=== PATIENT | female | born 1995 | race American Indian/Alaskan Native ===

== ENCOUNTER 2018-07-14 03:31 | Inpatient (IN) | payer MEDICAID ==
[2018-07-14] MEDS ORDERED: LACTATED RINGERS 1,000 ML ONE (03:45)
[2018-07-14] MEDS ORDERED: BRETHINE SUB-Q PRN (04:16)
[2018-07-14] MEDS ORDERED: XYLOCAINE 2% INFILTRATI ONE (04:16)
[2018-07-14] MEDS ORDERED: BRETHINE IVP PRN (04:16)
[2018-07-14] MEDS ORDERED: ZOFRAN IV PRN (04:16)
[2018-07-14] MEDS ORDERED: MINERAL OIL PO PRN (04:16)
[2018-07-14] MEDS: LACTATED RINGERS 1,000 ML IV SCH ×3 (04:35→22:50)
[2018-07-14] MEDS: STADOL IV PRN ×2 (04:36→07:10)
[2018-07-14 04:48] LABS: Hematocrit 32.5 % (30.3-42.9); Hemoglobin 10.7 gm/dl (10.1-14.3); Mean Corpuscular HGB Conc 33 % (30-34); Mean Corpuscular Volume 80 fl (79-97); Platelet Count 258 K/mm3 (140-440); Red Blood Count 4.08 M/mm3 (3.65-5.03); Red Cell Distribution Width 14.8 % (13.2-15.2)
[2018-07-14] MEDS ORDERED: PITOCin/NS 20 UNIT/1000ML DRIP 20 UNITS/1,000 ML BAG IV SCH ×3 (05:00→12:00)
--- NOTE | 2018-07-14 08:20 | History and Physical Report ---
History of Present Illness Date of examination: 07/14/18 Date of admission: 07/14/2018 Chief complaint: leakage of fluid History of present illness: 23y/o @ 39+1 weeks presents with gross leakage of fluid and 1-2cm dilated. The patient is a transfer of care @ 34 weeks ega from [place]. She has had lapse in care during her . She has a history of prior delivery. Past History Past Medical History: other (bipolar disorder) Past Surgical History: section Social history: single - Obstetrical History Expected Date of Delivery: 07/20/18 Actual Gestation: 39 Week(s) 1 Day(s) : 2 Para: 1 Hx # Term Pregnancies: 1 Number of Pregnancies: 0 Spontaneous Abortions: 0 Induced : 0 Number of Living Children: 1 Medications and Allergies Allergies Allergy/AdvReac Type Severity Reaction Status Date / Time No Known Allergies Allergy Verified 07/14/18 04:15 Active Meds: Active Medications Butorphanol Tartrate (Stadol) 2 mg IV Q2H PRN PRN Reason: Pain , Severe (7-10) Last Admin: 07/14/18 07:10 Dose: 2 mg Documented by: Ephedrine Sulfate (Ephedrine Sulfate) 10 mg IV Q2M PRN PRN Reason: Hypotension Lactated Ringer's (Lactated Ringers) 1,000 mls @ 125 mls/hr IV DIRECT GIDEON Last Admin: 07/14/18 07:09 Dose: 125 mls/hr Documented by: Oxytocin/Sodium Chloride (Pitocin/Ns 20 Unit/1000ml Drip) 20 units in 1,000 mls @ 125 mls/hr IV DIRECT GIDEON Mineral Oil (Mineral Oil) 30 ml PO QHS PRN PRN Reason: Constipation Ondansetron HCl (Zofran) 4 mg IV Q8H PRN PRN Reason: Nausea And Vomiting Last Admin: 07/14/18 04:35 Dose: 4 mg Documented by: Terbutaline Sulfate (Brethine) 0.25 mg SUB-Q ONCE PRN PRN Reason: Hyperstimulation/Hypertonicity Terbutaline Sulfate (Brethine) 0.25 mg IVP ONCE PRN PRN Reason: Hyperstimulation/Hypertonicity Review of Systems Genitourinary: leakage of fluid, contractions - Vital Signs Vital signs: Vital Signs Temp Resp 97.6 F 20 07/14/18 05:00 07/14/18 05:00 Temp Pulse Resp BP Pulse Ox 97.6 F 61 18 131/65 07/14/18 05:00 07/14/18 07:27 07/14/18 07:10 07/14/18 07:27 - Physical Exam Breasts: Positive: deferred Cardiovascular: Regular rate Lungs: Positive: Clear to auscultation Results Result Diagrams: 07/14/18 04:20 Abnormal lab results 07/14/18 Range/Units 04:20 MCH 26 L (28-32) pg All other labs normal. Assessment and Plan - Patient Problems (1) Previous delivery affecting Current Visit: Yes Status: Acute Plan to address problem: will proceed with a repeat delivery (2) Spontaneous rupture of amniotic membranes Current Visit: Yes Status: Acute
[2018-07-14] MEDS ORDERED: ANCEF/STERILE WATER 2 GM/20 ML 2 GM/20 ML SYRINGE IV NR (10:00)
[2018-07-14] MEDS ORDERED: REGLAN IV ONE (10:00)
[2018-07-14] MEDS ORDERED: BICITRA PO ONE (10:00)
[2018-07-14] MEDS ORDERED: PEPCID IV ONE (10:00)
[2018-07-14] MEDS ORDERED: LACTATED RINGERS 1,000 ML IV SCH (10:00)
[2018-07-14] MEDS ORDERED: LANSINOH TP PRN (11:42)
[2018-07-14] MEDS ORDERED: TYLENOL PO PRN (11:42)
[2018-07-14] MEDS ORDERED: MORPHINE IV PRN (11:42)
[2018-07-14] MEDS ORDERED: TUCKS PAD TP PRN (11:42)
[2018-07-14] MEDS ORDERED: NARCAN 0.4 MG/1 ML IV PRN ×2 (11:42→14:02)
--- NOTE | 2018-07-14 11:46 | Procedure Note ---
OB Delivery Note - Delivery Date of Delivery: 07/14/18 Surgeon: GAGE ROLAND Estimated blood loss: 500cc - Section Preop diagnosis: repeat Postop diagnosis: same section procedure: section, repeat low transverse Disposition: PACU Complications: none - A at 1 minute: 8 at 5 minutes: 9 (weight 7lbsn 4oz) Infant Gender: Female
--- NOTE | 2018-07-14 11:47 | Operative Report ---
Operative Report Operative Report: Date of surgery: 07/14/2018 Preoperative diagnosis: at 39+1 weeks; previous delivery; spontaneous rupture membranes Postoperative diagnosis: Same as above Procedure: Repeat low-transverse delivery; lysis of adhesions Surgeon: Maria Antonia Ireland M.D. Anesthesia: Regional Estimated blood loss: 500 mL IV fluids: 800 mL Urine output: 250 mL Findings: Liveborn female infant with Apgars of 8 and 9 weight 7 lbs. 4 oz. born at 1315 Indications: 23-year-old at 39+1 weeks who presents with gross rupture of membranes and history of a prior delivery. Procedure: The patient was taken to the operating room and given regional anesthesia without complication. She was prepped and draped in a normal sterile fashion. A Pfannenstiel skin incision was made down to layer the fascia which was nicked in the midline extended laterally with the Bovie cautery. The superior aspect of the rectus fascia was grasped with [place] clamps x2 and the rectus muscles off sharply. This was done in inferior fashion as well. The rectus muscle midline and peritoneum entered bluntly. An Jose retractor was then inserted. A bladder blade was placed. The vesicouterine peritoneum was then entered sharply with Metzenbaum scissors. A bladder flap was created digitally. A low transverse uterine incision was then made and extended digitally. There was clear fluid upon entry into the uterine cavity. The head was delivered through the incision with fundal pressure. The cord was clamped and cut x2 and infant was passed off to pediatrics. The placenta was then manually extracted. The uterus was then exteriorized and cleared of clots and debris. The uterine incision was then closed in a running locked fashion with 0 Vicryl additional imbricating stitch was applied for 2 layer closure. An additional figure 8 stitch was placed in the left lateral corner of the incision for hemostasis. The posterior cul-de-sac was then copiously irrigated. The uterus was replaced back into the abdomen and pelvis were the gutters were then irrigated. The Jose retractor was then removed. The peritoneum was then reapproximated with 3-0 Vicryl incorporating the rectus muscle. The fascia was then closed with 0 Vicryl in a running fashion. The skin was then reapproximated with 3-0 Monocryl on a Master needle subcuticular fashion. Steri-Strips to place across the incision and a Crede procedures performed at the end of the surgery. A pressure dressing was applied to the incision. The surgery productive of a liveborn female infant with Apgars of 8 and 9 weight 7 lbs. 4 oz. The patient was taken to the recovery room in stable condition. All sponge laps and needle counts correct x2.
[2018-07-14] MEDS ORDERED: SODIUM CHLORIDE FLUSH SYRINGE 10 ML IV NR ×2 (12:00→15:00)
[2018-07-14] MEDS ORDERED: SUBLIMAZE ONE (12:41)
[2018-07-14] MEDS ORDERED: ANCEF/STERILE WATER 2 GM/20 ML IV ONE (13:06)
[2018-07-14] MEDS ORDERED: WATER FOR IRRIG STERILE IR ONE (13:07)
[2018-07-14] MEDS ORDERED: NACL 0.9% IR ONE (13:07)
[2018-07-14] MEDS ORDERED: ZOFRAN ONE (13:30)
--- NOTE | 2018-07-14 14:07 | Post Anesthesia Evaluation ---
- Post Anesthesia Evaluation Patient Participated: Yes Airway Patent: Yes Stable Respiratory Function: Yes Nausea/Vomiting: No Temp > 96.8F: Yes Pain Manageable: Yes Adequeate Hydration: Yes Anesthesia Complications: No Block Receding Appropriately: Yes (T10 level) Patient on Ventilator: No Other Comments: Pt in OB PACU to be monitored by staff nurse. No complaints of pain or nausea. Explained to patient typical post operative recession of spinal level. Pt verbalizes understanding.
[2018-07-14] MEDS: DILAUDID IV PRN ×3 (14:42→15:17)
[2018-07-14] MEDS: TORADOL IV PRN ×2 (14:48→22:54)
[2018-07-14] MEDS: PERCOCET 5/325 PO PRN (17:00)
[2018-07-14 23:29] LABS: Hematocrit 29.3 % (30.3-42.9); Hemoglobin 9.5 gm/dl (10.1-14.3)
[2018-07-15] MEDS: PERCOCET 5/325 PO PRN ×4 (00:17→22:08)
[2018-07-15] MEDS: TORADOL IV PRN (05:59)
[2018-07-15] MEDS: LACTATED RINGERS 1,000 ML IV SCH (06:31)
--- NOTE | 2018-07-15 08:55 | Progress Note ---
Assessment and Plan A/P POD 1 s/p repeat csec routine Post op orders h/h 10-9 iron supplemented continue present mgt Subjective - Subjective Date of service: 07/15/18 Principal diagnosis: s/p repeat csec Patient reports: appetite normal, voiding normally, pain well controlled, flatus, ambulating normally : doing well Objective - Vital Signs Latest vital signs: Vital Signs Temp Pulse Resp BP BP Pulse Ox 07/15/18 01:14 98.5 F 74 20 102/45 98 07/14/18 21:02 98.1 F 57 L 20 123/73 97 07/14/18 15:50 98.2 F 62 18 113/67 07/14/18 15:00 97.8 F 58 L 14 114/62 99 07/14/18 14:45 57 L 18 115/61 100 07/14/18 14:30 56 L 17 125/65 99 07/14/18 14:25 57 L 18 129/59 98 07/14/18 14:20 54 L 16 120/54 99 07/14/18 14:15 54 L 16 117/56 98 07/14/18 14:10 58 L 15 114/56 99 07/14/18 14:05 58 L 14 116/55 100 07/14/18 14:00 97.7 F 54 L 16 101/49 98 07/14/18 11:27 63 120/67 07/14/18 10:48 84 119/64 07/14/18 09:28 65 122/72 Intake and Output 07/14/18 07/15/18 07/15/18 23:59 07:59 15:59 Intake Total 1440.417 Output Total 1000 Balance 440.417 Intake: IV 960.417 Lactated Ringers 1,000 ml 960.417 @ 125 mls/hr IV DIRECT GIDEON Rx#:[id number] Intake, Free Water 480 Output: Urine 1000 Indwelling Catheter 1000 Other: Total, Output Amount 1000 - Exam Breasts: Present: deferred Cardiovascular: Present: Regular rate, Normal S1 Lungs: Present: Clear to auscultation, Normal air movement Abdomen: Present: normal appearance, soft, normal bowel sounds. Absent: distention, tenderness, guarding Uterus: Present: normal, firm, fundal height below umbilicus. Absent: bogginess, tenderness Extremities: Present: normal Deep Tendon Reflex Grade: Normal +2 Incision: Present: normal, dry, intact, dressed - Labs Labs: Abnormal lab results 07/14/18 Range/Units 23:00 Hgb 9.5 L (10.1-14.3) gm/dl Hct 29.3 L (30.3-42.9) %
[2018-07-15] MEDS: IBUPROFEN PO PRN (17:00)
[2018-07-16] MEDS: IBUPROFEN PO PRN ×3 (06:03→18:43)
[2018-07-16] MEDS: PERCOCET 5/325 PO PRN ×4 (06:04→22:29)
--- NOTE | 2018-07-16 08:24 | Progress Note ---
Assessment and Plan A/P POD 2 s/p repeat csec routine Post op orders h/h 10-9 iron supplemented continue present mgt consider d/c home tomorrow Subjective - Subjective Date of service: 07/16/18 Principal diagnosis: s/p repeat csec Patient reports: appetite normal, voiding normally, pain well controlled, flatus, ambulating normally [place]: doing well Objective - Vital Signs Latest vital signs: Vital Signs Temp Pulse Resp BP 07/16/18 00:30 98.6 F 68 16 119/78 07/15/18 16:20 98.2 F 64 18 115/66 07/15/18 13:47 66 18 123/69 07/15/18 12:23 98.5 F 70 18 112/78 Intake and Output 07/15/18 07/16/18 07/16/18 23:59 07:59 15:59 Intake Total 600 240 Balance 600 240 Intake: Oral 600 240 Other: Total, Intake Amount 240 240 # Voids Void 1 - Exam Breasts: Present: normal Cardiovascular: Present: Regular rate, Normal S1 Lungs: Present: Clear to auscultation, Normal air movement Abdomen: Present: normal appearance, soft, normal bowel sounds. Absent: distention, tenderness, guarding Vulva: both: normal Uterus: Present: normal, firm, fundal height below umbilicus. Absent: bog giness, tenderness Extremities: Present: normal Deep Tendon Reflex Grade: Normal +2 Incision: Present: normal, dry, intact
--- NOTE | 2018-07-16 13:37 | Discharge Summary ---
Providers - Providers Date of Admission: 07/14/18 03:32 Date of discharge: 07/17/18 Attending physician: GAGE ROLAND Primary care physician: GAGE ROLAND Hospitalization Reason for admission: IUP at term Delivery: Procedure: section Episiotomy: none Laceration: none Incision: normal, dry, intact Other procedures: none Discharge diagnosis: IUP at term delivered Hospital course: unremarkable hospital course Condition at discharge: Good Disposition: DC-01 TO HOME OR SELFCARE Plan - Discharge Medications Prescriptions: Ferrous Sulfate 325 mg PO BID #60 tablet. Ibuprofen [Motrin] 600 mg PO Q8H PRN #30 tablet PRN Reason: Pain oxyCODONE /ACETAMINOPHEN [Percocet 5/325] 1 tab PO Q6HR PRN #30 tablet PRN Reason: Pain - Provider Discharge Summary Activity: routine, no sex for 6 weeks Diet: routine Instructions: routine Additional instructions: [] Smoking cessation referral if applicable(refer to patient education folder for contact #) [] Refer to [facility] Booklet Call your doctor immediately for: * Fever > 100.5 * Heavy vaginal bleeding ( >1 pad per hour) * Severe persistent headache * Shortness of breath * Reddened, hot, painful area to leg or breast * Drainage or odor from incision. * Keep incision clean and dry at all times and follow doctor's instructions regarding bathing/showering - Follow up plan Follow up: GAGE ROLAND MD [Primary Care Provider] - 7 Days
[2018-07-17] MEDS: IBUPROFEN PO PRN ×3 (01:16→14:27)
[2018-07-17] MEDS: PERCOCET 5/325 PO PRN ×2 (08:41→14:26)
[2018-07-17 19:52] VITALS: BP 111/60
== END 2018-07-17 16:00 | disposition home or self-care (01) | DRG 765 ==
LOC: TRG 03:31 → LD 03:32 → TRG 03:32 → LD 03:58 → OB 15:52
PROVIDERS: ADMIT Obstetrics & Gynecology; ATTEND Obstetrics & Gynecology
PROC: 10D00Z1 Extraction of Products of Conception, Low, Open Approach (ICD-10-PCS; principal; 2018-07-14)
DX: O34.211 Maternal care for low transverse scar from previous cesarean delivery (principal); R71.0 Precipitous drop in hematocrit; Z3A.39 39 weeks gestation of pregnancy; Z37.0 Single live birth; O99.344 Other mental disorders complicating childbirth; F31.9 Bipolar disorder, unspecified
CPT/HCPCS: 36415; 85014; 85018; 85027; 86592; 86850; 86900; 86901; G0378; J0595; J0690; J1170; J1885; J2270; J2405; J2590; J2765; J3010; J7120